=== PATIENT | female | born 1935 | race Caucasian/White ===

== ENCOUNTER 2023-12-29 06:41 | Day surgery (SDC) | payer MEDICARE, SELFPAY ==
[2023-12-20 14:35] VITALS: BMI 20.1
[2023-12-29] VITALS (19 sets, daily range): BP systolic 103–138; BP diastolic 48–93; PULSE 70–91; RESP 10–22; TEMP 36.2–36.8; O2SAT 91–99; BMI 19.1
[2023-12-29] MEDS: LACTATED RINGERS 1,000 ML 42 ML IV ×2 (07:24→10:50)
[2023-12-29] MEDS: ALBUTEROL/IPRATROPIUM 3 ML AMPUL INH (07:34)
[2023-12-29] MEDS: ACETAMINOPHEN 325 MG TABLET 975 MG PO (07:34)
--- NOTE | 2023-12-29 07:37 | PM.PREOP ---
Pre-operative Note COVID-19 COVID-19 status: Not tested Interval Note History & Physical reviewed/Exam performed by Physician: Yes Changes to H&P: No
[2023-12-29] MEDS: CEFAZOLIN 2 GM/100 ML PREMIX 100 ML IV (08:16)
[2023-12-29] MEDS: BUPIVACAINE 0.25% (PF) 30 ML, EPINEPHrine 0.15 MG INJ (08:40)
[2023-12-29] MEDS: TRANEXAMIC ACID 1,000 MG in SODIUM CHLORIDE 0.9% 100 ML 200 MG IV ×2 (10:01→10:40)
--- NOTE | 2023-12-29 10:16 | PM.GYNOP.1 ---
Operative Date/Time/Diagnoses Date of procedure: 12/29/23 Time of procedure: 08:30 Pre-op diagnosis: Vaginal vault prolapse following hysterectomy Post-op diagnosis: same Procedure & Clinicians Procedure: Procedures Operation Date: 12/29/23 07:45 Actual Procedure Side Surgeon kai Stapleton Colpocleisis with perineoplasty Efra Hook MD Indications: Mayte Staton has a long history of pelvic organ prolapse following abdominal hysterectomy performed in 1983 with subsequent laparoscopic BSO in 2001. Attempts at placing/retaining pessary have been unsuccessful. For at least the last 8 months or so, the patient has been having to void about every hour or less with small amounts each time. As a result she is constantly moist and wears a pad continuously. She was initiated on Vagifem in January but the applicator was very uncomfortable and she since has switched over to vaginal estradiol cream 0.01% which she uses per vagina HS twice weekly. Patient denies urinary tract infections or incontinence. Review of old records shows that she is been described as having both cystocele and enterocele. She was seen by a urologist in [place] ([facility]) wanted to place her on Myrbetriq but the cost was prohibitive. Patient experiences urinary frequency as often as hourly for several months. She describes the effect as being ?constantly moist?. She is started using estrogen vaginally in January but did not tolerate Vagifem. Instead she was placed on estradiol vaginal cream twice weekly and has been using it since seeing the urologist. 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 Patient denies stress urinary incontinence at any point in her life and she has not sexually active. After extensive discussions with both the patient and her daughter Agustina, she has decided to move forward with colpocleisis and possible perineoplasty. She presents today for her scheduled surgery. Both the patient and her daughter have been extensively counseled regarding the potential benefits of this surgery but that no assurance can be made that it will benefit her urinary frequency symptoms. 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 Following successful completion of the initial colpocliesis procedure, evaluation in the PACU revealed ongoing blood loss PV in excess of acceptable post-op oozing and as a result the patient was returned to the OR and under general anesthesia the colpocliesis was taken down in it's entirety to assess for possible bleeding points. Two small areas of capillary bleeding were identified and secured with 2-0 vicryl suture prior to reconstruction of the colplocliesis. Closure Type: primary Specimen(s): none Applied: catheter Estimated blood loss (mL): 175 Blood products transfused: none Procedure in detail: With the patient under satisfactory general endotracheal anesthesia in the modified dorsal lithotomy position, the vagina, perineum, and lower abdominal wall were prepped and draped in the usual manner for colpocleisis. A pre-surgical safety time-out was then taken in accordance with [facility] protocols. A short weighted speculum was placed in the vagina and the vaginal cuff identified visually. The vaginal cuff was grasped with 2 T clamps and mobilized downward. The area of mucosal incision anteriorly starting 2 cm distal to the vaginal cuff scar, 3 cm in width, and extending distal to 4 cm from the hymeneal ring was made with marking pen. Posteriorly a similar rectangle was marked from 2 cm distal to the vaginal cuff posteriorly, 3 cm in width and extending to within 4 cm of the posterior hymenal ring. Vaginal mucosa both anterior and posterior which was to be excised was infiltrated with 0.25% Marcaine with epinephrine. The mucosa both anterior and posterior was excised with sharp and blunt dissection. The most cephalic edges of the mucosa were then brought together with 2-0 Vicryl interrupted. The denuded anterior and posterior tissues were then brought together with 2-0 Vicryl using [id number] stitches at consecutive levels followed by approximation of the lateral mucosa with 2-0 Vicryl interrupted. Five layers of [id number] stitches and lateral interrupted were used to bring the denuded areas of anterior and posterior tissues together in the midline. The distal most vaginal mucosa was then brought together with 2-0 Vicryl interrupted, thus completing the performance of the colpocleisis. A ella-shaped incision of the skin overlying the perineal body up into the distal most vagina was made with monopolar cutting and the mucosa excised in the usual manner. Sharp and blunt dissection was used to expose the distal levators on both sides and 0 Vicryl interrupted were used to approximate the distal levators. Additional 2-0 Vicryl stitches were used to bring the introitus together in midline and substance of the perineal body was also plicated in the midline with 2-0 Vicryl interrupted. The vaginal mucosa was then brought together with 2-0 Vicryl and a running interlocking stitch all the way down to the perineal body. Case was then completed and the patient awakened from general anesthesia. She was then transferred to the PACU for a period of observation and recovery having tolerated procedure well. While under observation in the PACU following her colpocleisis, the patient was noted to have excessive amounts of bright red blood per vagina. Efforts to identify an accessible source of the bleeding in the PACU were unsuccessful and the decision was made to return the patient to the operating room or exploration under anesthesia. She remained hemodynamically stable throughout her time in the PACU as well as her time in the returned to the operating room. The patient was counseled regarding this need as was her daughter who was waiting for her in the surgical waiting area. The patient was then returned to the operating room and general anesthesia was again induced after a safety time-out. The sutures of the original colpocleisis were taken down so as to expose the full dissection and to small areas of capillary bleeding were noted with 1 in the uppermost portion of the dissection on the right side and a 2nd midway down the dissection on the left side. Both were secured with individual stitches of 2-0 Vicryl interrupted and hemostasis was restored. The colpocleisis procedure was performed again in exactly the way it had been performed originally as detailed above. At the completion of the returned to the operating room, hemostasis was complete and there was no significant vaginal bleeding noted. The patient was awakened from anesthesia, and transferred back to the PACU for period of observation and recovery. Complications: other (Postoperative bleeding requiring return to OR) Post-operative Condition: stable Disposition: PACU Plan for aftercare: Routine postoperative care with close observation for further bleeding.
[2023-12-29] MEDS: HYDROMORPHONE 1 MG INJ IV ×2 (10:28→10:52)
--- NOTE | 2023-12-29 10:47 | PM.PN.1 ---
Subjective Subjective Date Patient Seen: 12/29/23 Time Patient Seen: 10:47 Interval history: Patient is experiencing excessive bleeding following [place] colpocleisis. Will return to the operating room for an examination under anesthesia and most likely taking down the colpocleisis to identify point or points of bleeding. Patient is aware as is her daughter. Exam Vital Signs (past 8 hours): - 12/29/23 07:14 12/29/23 10:10 12/29/23 10:14 Temperature 97.3 F L 97.1 F L Pulse Rate 70 91 H 87 Respiratory Rate 16 13 13 Blood Pressure 138/74 115/84 116/59 L Pulse Oximetry 98 95 95 Oxygen Delivery Method Room Air Room Air Room Air 12/29/23 10:19 12/29/23 10:24 12/29/23 10:30 Temperature Pulse Rate 76 77 73 Respiratory Rate 14 13 15 Blood Pressure 131/59 L 124/67 123/67 Pulse Oximetry 94 95 96 Oxygen Delivery Method Room Air Room Air Room Air 12/29/23 10:34 12/29/23 10:40 Temperature Pulse Rate 78 83 Respiratory Rate 14 13 Blood Pressure 136/73 125/93 H Pulse Oximetry 97 91 Oxygen Delivery Method Room Air Room Air Oxygen Delivery Method Room Air Objective Labs 12/29/23 10:33 [facility] Medical History (Updated 12/29/23 @ 10:48 by Efra Hook MD) Post-polio syndrome Rosacea (~1999) COPD (chronic obstructive pulmonary disease) (~2018) Asthma Polio Osteoporosis Cervical spine disease Vertigo Glaucoma Cataracts, bilateral (~2018) Herpes (~1959) Fibroids (~1983) Urinary frequency Kidney stones GERD (gastroesophageal reflux disease) (~1994) Diverticular disease (~1984) Hypothyroidism Surgical History History of bilateral oophorectomy History of hysterectomy (~1983) Social History Smoking Status: Former smoker alcohol intake: current Assessment & Plan Assessment and plan (1) Postoperative vaginal bleeding following genitourinary procedure: Status: Acute Plan Will return to the operating room for examination under anesthesia and to take down the colpocleisis in search of sources of bleeding.
[2023-12-29 10:50] LABS: Add Manual Diff / Slide Review NO; Basophils Absolute Auto 0 /uL (0-100); Basophils Percent Auto 0.3 % (0-2); Eosinophils Absolute Auto 0 /uL (0-450); Eosinophils Percent Auto 0.7 % (2-4); Hematocrit 36.7 % (36-46); Lymphocytes Absolute Auto 1100 /uL (1100-4500); Lymphocytes Percent Auto 24.2 % (25-40); Mean Corpuscular HGB Conc 32.6 % (30-36); Mean Corpuscular Hemoglobin 28.6 PG (26-34); Mean Corpuscular Volume 87.6 fL (80-100); Monocytes Absolute Auto 200 /uL (0-900); Monocytes Percent Auto 3.3 % (3-14); Neutrophils Absolute Auto 3200 /uL (1500-7000); Neutrophils Percent Auto 71.5 % (50-75); Platelet Count 247 X10^3/uL (150-400); Red Cell Distribution Width 13.5 % (11.6-14.8); White Blood Cell Count 4.5 X10^3/uL (4.5-11.0)
[2023-12-29 10:57] LABS: Prothrombin Time 10.9 SECONDS (9.4-12.5)
[2023-12-29 10:59] LABS: PTT Partial Thromboplastin Tim 38 SECONDS (25.1-36.5)
[2023-12-29] MEDS: OXYCODONE IR 5 MG TABLET PO (13:31)
== END 2023-12-29 17:00 | disposition home or self-care (01) ==
LOC: OR 10:49 → AC 14:22
PROVIDERS: PCP Internal Medicine; Referring Provider Obstetrics & Gynecology; Visit Provider Obstetrics & Gynecology
PROC: (CPT 57120; principal; 2023-12-29 07:45)
DX: N99.3 Prolapse of vaginal vault after hysterectomy (principal)
CPT/HCPCS: 57120; 36415; 85025; 85610; 85730; J0171; J0690; J1100; J1170; J2405; J2704; J3010